=== PATIENT | male | born 1970 | race Caucasian/White ===

== ENCOUNTER 2024-03-29 12:24 | Outpatient (REF) | payer MEDICARE, SELFPAY ==
[2024-03-29 13:28] LABS: MANUAL DIFF FLAG NO
[2024-03-29 13:35] LABS: Basophils Percent Auto 0.4 % (0-2); Eosinophils Absolute Auto 0.1 X10*3/uL (0.0-0.4); Eosinophils Percent Auto 1.8 % (0-4); Hematocrit 37.9 % (42.0-52.0); Hemoglobin 12.1 g/dl (14.0-18.0); Imm Gran Abs Auto 0.02 X10*3/uL (0.00-0.03); Imm Gran Pct Auto 0.3 % (0.0-0.4); Lymphocytes Absolute Auto 2.1 X10*3/uL (1.2-4.9); Lymphocytes Percent Auto 29.4 % (20-40); Mean Corpuscular HGB Conc 31.9 g/dl (31.0-36.0); Mean Corpuscular Hemoglobin 27.6 pg (27.0-33.0); Mean Corpuscular Volume 86.3 fL (80.0-98.0); Mean Platelet Volume 9.4 fL (9.4-12.4); Monocytes Absolute Auto 0.5 X10*3/uL (0.1-1.2); Monocytes Percent Auto 6.5 % (2-11); Neutrophils Absolute Auto 4.4 x10*3/uL (2.0-8.3); Neutrophils Percent Auto 61.6 % (45-73); Platelet Count 290 X10*3/uL (160-400); Red Blood Count 4.39 X10*6/uL (4.60-5.80); Red Cell Distribution Width 14.7 % (11.0-16.0); White Blood Count 7.1 X10*3/uL (4.8-10.8)
[2024-03-29 14:13] LABS: Erythrocyte Sedimentation Rate 14 MM/HR (0-15)
[2024-03-29 14:47] LABS: Rheumatoid Factor < 13.0 IU/mL (<15.0)
[2024-03-29 14:58] LABS: Alanine Aminotransferase 15 U/L (0-40); Albumin Level 4.1 g/dL (3.5-5.0); Alkaline Phosphatase 82 U/L (39-117); Anion Gap 14 (12-20); Aspartate Amino Transferase 30 U/L (5-37); Bilirubin Total 0.4 mg/dL (0.0-1.0); Blood Urea Nitrogen 10 mg/dL (9-16); C Reactive Protein 0.59 mg/dL (< or = 0.50); Calcium 9.5 mg/dL (8.4-10.2); Carbon Dioxide 27 mmol/L (22-29); Chloride 104 mmol/L (96-108); Cholesterol 147 mg/dL (<200); Estimated Glomerular Filt Rate > 60; Glucose Random 65 mg/dL (60-115); HDL Cholesterol 46 mg/dL (>40); LDL Cholesterol Calculated 89 mg/dL (<100); Potassium 4.1 mmol/L (3.3-5.1); Sodium 141 mmol/L (135-145); Total Protein 6.9 g/dL (6.5-8.0); Triglycerides 64 mg/dL (<150)
[2024-03-30 08:16] LABS: HIV AB/AG Nonreactive (Nonreactive); HIV Num 1 0.05 S/CO (0.00-0.99); ~HepC Num1 0.08 S/CO (0.00-0.79); ~Hepatitis C Antibody Nonreactive (Nonreactive)
[2024-03-31 10:49] LABS: RPR Rapid Plasma Reagin NON-REACTIVE (NON-REACTIVE)
[2024-03-31 20:38] LABS: Cyclic Citrullinated Peptide <16 UNITS
[2024-04-01 13:28] LABS: Anti Nuclear Antibody Screen NEGATIVE (NEGATIVE)
== END 2024-03-29 12:25 | disposition home or self-care (01) ==
LOC: HO.HHCL 12:24
PROVIDERS: Visit Provider Nurse Practitioner Primary Care
DX: Z11.4 Encounter for screening for human immunodeficiency virus [HIV] (principal); Z13.6 Encounter for screening for cardiovascular disorders; Z13.220 Encounter for screening for lipoid disorders; M25.50 Pain in unspecified joint; Z20.2 Contact with and (suspected) exposure to infections with a predominantly sexual mode of transmission
CPT/HCPCS: 36415; 80053; 80061; 85025; 85652; 86038; 86140; 86200; 86431; 86592; 86803; 87389

== ENCOUNTER 2024-05-10 15:49 | Outpatient (REF) | payer MEDICARE, SELFPAY | END 2024-05-10 15:50 | disposition home or self-care (01) | LOC: HO.HOSX 15:49 | PROVIDERS: Visit Provider Orthopaedic Surgery | DX: Z13.89 Encounter for screening for other disorder (principal) ==

== ENCOUNTER 2024-06-01 12:58 | Outpatient (REF) | payer MEDICARE, SELFPAY | END 2024-06-01 12:59 | disposition home or self-care (01) | LOC: HO.HOSX 12:58 | PROVIDERS: Visit Provider Orthopaedic Surgery | DX: Z13.89 Encounter for screening for other disorder (principal) ==

== ENCOUNTER 2024-06-23 11:44 | Outpatient (REF) | payer MEDICARE, SELFPAY ==
--- OUTSIDE RECORDS SUMMARY | 2024-06-24 12:45 | XMS_ITS | Clinical Summary ---
Author Organization [employer] [facility] Address [address] [facility] 7 [place] [address] Care Team Providers Care Travel Rn Or Name Role Phone Megan Doe Primary Care Provider [phone] Allergies No known active allergies Medications lidocaine (Lidoderm) 5 % patchIndication s:Low back pain at multiple sites Apply 1 patch topically Once per day. Remove & discard patch within 12 hours or as directed by MD. 30 patch 2 Active Active Problems Problem Noted Date Diagnosed Date Chronic low back pain 03/29/2024 Tobacco dependence syndrome 03/29/2024 Encounters Date Type Department Care Team Description 05/16/2024 Telephone [facility] [address] [place] [phone] Cheryl Jensen MA June recall 04/13/2024 Orders Only [address] [address] Megan Doe ANP 04/05/[address] [address] Megan Doe ANP Prior Authorization (JAMI PADILLA Request: Lidocaine 5% Patch) 03/29/2024 11:15 AM EST Office Visit [address] [address] Megan Doe ANP Recurrent left knee instability (Primary Dx); Chronic pain of left ankle; Encounter for immunization; Polyarthralgia; Routine screening for STI (sexually transmitted infection); Encounter for lipid screening for cardiovascular disease; Low back pain at multiple sites; Screening for colon cancer; History of lumbar fusion; Tobacco dependence syndrome 03/29/2024 Travel 03/28/2024 Telephone [facility] [address] [place] [phone] Mary Ann Underwood MA chart prep from Last 3 Months Immunizations Name Administration Dates Next Due Hep A, Adult 06/17/2021 Hep B, adult 06/17/2021 Influenza, IIV3, injectable 01/26/2015 Influenza, seasonal, injecta ble, preservative free 03/29/2024(Deferred: Patient decision) Tdap 06/28/2021 Social History Tobacco Use Types Packs/Day Years Used Date Smoking Tobacco: Every Day Cigarettes Smokeless Tobacco: Current Tobacco Cessation:Ready to Q uit: Not Asked; Counseling Given: Not Answered Alcohol Answer Date Recorded Frequency of Alcohol Consumption Not on file 03/29/2024 Average Number of Drinks Not on file Frequency of Binge Drinking Not on file 03/18 Score 0 03/29/2024 Sex and Gender Information Value Date Recorded Sex Assigned at Male 03/17/2022 10:35 AM EDT Legal Sex Male 10:35 AM EDT Gender Identity Male 03/17/2022 10:35 AM EDT Sexual Orientation Straight 03/17/2022 10 :35 AM EDT Last Filed Vital Signs Vital Sign Reading Time Taken Comments Blood Pressure 100/61 03/29/2024 11:59 AM EST Pulse 65 03/29/2024 11:59 AM EST Temperature 36.9 ??C (98.5 ??F) 03/29/2024 1 1:59 AM EST Respiratory Rate 16 03/29/2024 11:5 9 AM EST Oxygen Saturation 98% 03/29/2024 11: 59 AM EST Inhaled Oxygen Concentration - - Weight 53.4 kg (117 lb 12.8 oz) 024 11:59 AM EST Height 175.9 cm (5' 9.25 ) 06/28/2021 1 2:02 AM EST Body Mass Index 17.27 06/28/2021 12:02 AM EST Plan of Treatment Health Maintenance Due Date Last Done Comments CT Colonography 1971 Colonoscopy 1971 Colorectal Cancer Screening 1971 Depression Screening 1971 FIT DNA/Cologuard 1971 FIT 1971 FOBT 1971 SDOH Screening 1971 Sigmoidoscopy 1971 Family Planning (PISQ) 12/16/1986 Pneumococcal Vaccine: 50+ Years (1 of 2 - PCV) 12/16/1990 Hepatitis B Vaccines (2 of 3 - 19+ 3-dose series) 07/15/2021 06/17/2021 Hepatitis A Vaccines (2 of 2 - Risk 2-dose series) 12/15/2021 06/17/2021 Zoster Vaccines (1 of 2) 12/16/2021 COVID-19 Vaccine (1 - 2023-2 5 season) 2024 Influenza Vaccine (#1) 2024 01/26/2015 Alcohol/Substance Use Screening 03/29/2025 03/29/2024 Tobacco Screening 03/29/2025 03/29/2024 Lipid Panel 03/29/2029 03/29/2024 DTaP/Tdap/Td Vaccines (2 - T d or Tdap) 06/28/2031 06/28/2021 RSV Patients and Patients Aged 60 years or older (1 - 1-dose 75+ series) 12/16/2046 HIV Screening Completed 03/29/2024, 06/10/2021 Hepatitis C Screening Completed 03/29/2024 , 06/10/2021 HIB Vaccines Aged Out No longer eligi ble based on patient's age to complete this topic HPV Vaccines Aged Out No longer eligi ble based on patient's age to complete this topic IPV Vaccines Aged Out No longer eligi ble based on patient's age to complete this topic Meningococcal Vaccine Aged Out No moon betzaida eligible based on patient's age to complete this topic RSV under 20 months Aged Out No longe r eligible based on patient's age to complete this topic Rotavirus Vaccines Aged Out No longer eligible based on patient's age to complete this topic Procedures Procedure Name Priority Date/Time Associated Diagnosis Comments LIPID PANEL, STANDARD Routine 03/29/2024 12:29 PM EST Polyarthralgia Encounter for lipid screening for cardiovascular disease YAZMIN SCREEN, IFA, W/REFL TITER AND PATTERN Routine 03/29/2024 12:29 PM EST Polyarthralgia CBC WITH AUTO DIFFERENTIAL Routine 03/29/2024 12:29 PM EST Polyarthralgia CYCLIC CITRULLINATED PEPTIDE (CCP) AB (IGG) Routine 03/29/2024 12:29 PM EST Polyarthralgia C-REACTIVE PROTEIN Routine 03/29/2024 12 :29 PM EST Polyarthralgia SED RATE BY MODIFIED WESTERGREN Routine 03/29/2024 12:29 PM EST Polyarthralgia RHEUMATOID FACTOR Routine 03/29/2024 12: 29 PM EST Polyarthralgia HEPATITIS C AB W/REFL TO HCV RNA, QN, PCR Routine 03/29/2024 12:29 PM EST Routine screening for STI (sexually transmitted infection) RPR (MONITOR) W/REFL TITER Routine 03/29/2024 12:29 PM EST Routine screening for STI (sexually transmitted infection) HIV 1/2 ANTIGEN/ANTIBODY, FOURTH GENERATION W/RFL Routine 03/29/2024 12:29 PM EST Routine screening for STI (sexually transmitted infection) COMPREHENSIVE METABOLIC PANEL Routine 03/29/2024 12:29 PM EST Routine screening for STI (sexually transmitted infection) from Last 3 Months Results * (ABNORMAL) CBC auto differential (03/29/2024 12:29 PM EST) White Blood Count 7.1 4.8 - 10.8 X10*3/uL [facility] Red Blood Count 4.39(L) 4.60 - 5.80 X10*6/uL [facility] Hemoglobin 12.1(L) 14.0 - 18.0 g/dl [facility] Hematocrit 37.9(L) 42.0 - 52.0 % [facility] Mean Corpuscular Volume 86.3 80.0 - 98.0 fL [facility] Mean Corpuscular Hemoglobin 27.6 27.0 - 33.0 pg [facility] Mean Corpuscular HGB Conc 31.9 31.0 - 36.0 g/dl [facility] Red Cell Distribution Width 14.7 11.0 - 16.0 % [facility] Platelet Count 290 160 - 400 X10*3/uL [facility] Mean Platelet Volume 9.4 9.4 - 12.4 fL [facility] Neutrophils Percent Auto 61.6 45 - 73 % [facility] Imm Gran Pct Auto 0.3 0.0 - 0.4 % [facility] Lymphocytes Percent Auto 29.4 20 - 40 % [facility] Monocytes Percent Auto 6.5 2 - 11 % [facility] Eosinophils Percent Auto 1.8 0 - 4 % [facility] Basophils Percent Auto 0.4 0 - 2 % [facility] NRBC Pct Auto 0.0 0.0 - 0.2 /100WBC [facility] Neutrophils Absolute Auto 4.4 2.0 - 8.3 x10*3/uL [facility] Imm Gran Abs Auto 0.02 0.00 - 0.03 X10*3/uL [facility] Lymphocytes Absolute Auto 2.1 1.2 - 4.9 X10*3/uL [facility] Monocytes Absolute Auto 0.5 0.1 - 1.2 X10*3/uL [facility] Eosinophils Absolute Auto 0.1 0.0 - 0.4 X10*3/uL [facility] Basophils Absolute Auto 0.0 0.0 - 0.2 X10*3/uL [facility] NRBC Abs Auto 0.000 0.0 - 0.012 X10*3/uL [facility] Blood Venous blood specimen / Unknown 03/29/2024 12:29 PM EST 03/29/2024 1:15 PM EST Megan Doe [facility] LAB BLOOD ORDERABLES Final Resul t [facility] [address] [place] [phone] * Hepatitis C Antibody with Reflex to HCV, RNA, Quantitative, Real-Time PCR (03/29/2024 12:29 PM EST) Hepatitis C Antibody Nonreactive Nonreactive [facility] Comment:Antibodies to HCV no t detected; does not exclude early acuteHCV infection. Blood Venous blood specimen / Unknown 03/29/2024 12:29 PM EST 03/29/2024 1:15 PM EST Megan Doe [facility] LAB BLOOD ORDERABLES Final Resul t Performing Organization Address [facility] Co de Phone Number [facility] [address] [place] [phone] * Cyclic Citrullinated Peptide (CCP) Antibody (IgG) (03/29/2024 12:29 PM EST) Cyclic Citrullinated Peptide <16 UNITS [facility] Comment:Reference RangeNegat jeremy: <20Weak Positive: 20-39Moderate Positive: 40-59Strong Positive: >59THIS TEST WAS PERFORMED AT:[facility] [address] [id number] CARDONA MD Blood Venous blood specimen / Unknown 03/29/2024 12:29 PM EST 03/29/2024 1:15 PM EST Megan Doe [facility] LAB BLOOD ORDERABLES Final Resul t Performing Organization Address [facility] Co de Phone Number [facility] [address] [place] [phone] * RPR (Monitor) with Reflex to??Titer (03/29/2024 12:29 PM EST) RPR (Monitor) w/Refl Titer NON-REACTI VE NON-REACT JEREMY [facility] Comment:THIS TEST WAS PERFOR MED AT:[facility] [address] [id number] CARDONA MD Rapid Plasma Reagin Ab Titer TNP [facility] Blood Venous blood specimen / Unknown 03/29/2024 12:29 PM EST 03/29/2024 1:15 PM EST Megan [facility] LAB BLOOD ORDERABLES Final Resul t Performing Organization Address [facility] Co de Phone Number [facility] [address] [place] [phone] * HIV-1/2 Antigen and Antibodies, Fourth Generation, with Reflexes (03/29/2024 12:29 PM EST) HIV AB/AG Nonreactive Nonreactive [facility] Comment:HIV-1 p24 Ag and/or HIV-1/HIV-2 Ab not detected.A test result that is nonreactive does not exclude thepossibility of exposure to or infection with HIV-1 and/orHIV-2. Nonreactive results in this assay for individualswith prior exposure to HIV-1 and/or HIV-2 may be due toantigen and antibody levels that are below the limit ofdetection of this assay.The [employer] HIV Ag/Ab Combo assay result andsupplemental assay results should be interpreted inconjunction with the patient's clinical presentation,history and other laboratory results. If the results areinconsistent with clinical evidence, additional testing issuggested to confirm the result. Blood Venous blood specimen / Unknown 03/29/2024 12:29 PM EST 03/29/2024 1:15 PM EST Megan Doe [facility] LAB BLOOD ORDERABLES Final Resul t Performing Organization Address City/[facility] Co de Phone Number [facility] [address] [place] [phone] * Sed Rate by Modified Westergren (03/29/2024 12:29 PM EST) Erythrocyte Sedimentation Rate 14 0 - 15 MM/HR [facility] Comment:Patients with polycy themia and many hemoglobin abnormalitiesmay have depressed sed rates whereas patients with anemiamay have elevated sed rates. Blood Venous blood specimen / Unknown 03/29/2024 12:29 PM EST 03/29/2024 1:15 PM EST Megan Doe [facility] LAB BLOOD ORDERABLES Final Resul t Performing Organization Address [facility] Co de Phone Number [facility] [address] [place] [phone] * Rheumatoid Factor (03/29/2024 12:29 PM EST) Rheumatoid Factor <13.0 <15.0 IU/mL [facility] Blood Venous blood specimen / Unknown 03/29/2024 12:29 PM EST 03/29/2024 1:15 PM EST Megan Doe [facility] LAB BLOOD ORDERABLES Final Resul t Performing Organization Address [facility] Co de Phone Number [facility] [address] [place] [phone] * (ABNORMAL) C-reactive Protein (03/29/2024 12:29 PM EST) Pathologist [facility] C Reactive Protein 0.59(H) < or = 0.50 mg/dL [facility] Blood Venous blood specimen / Unknown 03/29/2024 12:29 PM EST 03/29/2024 1:15 PM EST Megan Doe [facility] LAB BLOOD ORDERABLES Final Resul t Performing Organization Address [facility] Number [facility] [address] [place] [phone] * YAZMIN Screen,IFA, with Reflex to Titer and Pattern (03/29/2024 12:29 PM EST) Anti Nuclear Antibody Screen NEGATIVE NEGATIVE [facility] Comment:YAZMIN IFA is a first l ine screen for detecting thepresence of up to approximately 150 autoantibodies invarious autoimmune diseases. A negative YAZMIN IFA resultsuggests an YAZMIN-associated autoimmune disease is notpresent at this time, but is not definitive. If thereis high clinical suspicion for Sjogren's syndrome,testing for anti-SS-A/Ro antibody should be considered.Anti-Chyna-1 antibody should be considered for clinicallysuspected inflammatory myopathies.AC-0: NegativeInternational Consensus on YAZMIN Patterns(https://doi.org/10.1515/tjce-6017-0297)For additional information, please refer tohttp://education.Govtoday/faq/MFP148(This link is being provided for informational/educational purposes only.)THIS TEST WAS PERFORMED AT:[facility] [place] [phone] CARDONA MD YAZMIN Titer TNP [facility] YAZMIN Pattern TNP [facility] YAZMIN TITER 2 (REF LAB) [facility] Pattern 2 [facility]NP [facility] Y[facility]MIN TITER 3 [facility] YAZMIN PATTERN 3 [facility] Blood Venous blood specimen / Unknown 03/29/2024 12:29 PM EST 03/29/2024 1:15 PM EST [facility] LAB BLOOD ORDERABLES Final Resul t [facility] [address] [place] [phone] * Lipid Panel, Standard (03/29/2024 12:29 PM EST) Triglycerides 64 <150 mg/dL [facility] Comment:Desirable Triglyceri de: less than 150 mg/dLBorderline High Triglyceride 150-199 mg/dLHigh Triglyceride: 200-499 mg/dLVery High Triglyceride: greater than or equal to 5OO mg/dL Cholesterol 147 <200 mg/dL [facility] Comment:Desirable Cholestero l: less than 200 mg/dLBorderline High Cholesterol: 200-239 mg/dLHigh Cholesterol: greater than 239 mg/dL LDL Cholesterol Calculated 89 <100 mg/dL [facility] Comment:Desirable LDL: less than 100 mg/dLNear Optimal/Above Optimal LDL: 110- 129 mg/dLBorderline High LDL: 130-159 mg/dLHigh LDL: 160-189 mg/dLVery High LDL: greater than or equal to 190 mg/dL HDL Cholesterol 46 >40 mg/dL [facility] Comment:Desirable HDL: great er than 40 mg/dL Note: This HDL assay may give artificially low results in patients with liver disease. Blood Venous blood specimen / Unknown 03/29/2024 12:29 PM EST 03/29/2024 1:15 PM EST Megan Doe [facility] LAB BLOOD ORDERABLES Final Resul t [facility] [address] [place] [phone] * Comprehensive Metabolic Panel (03/29/2024 12:29 PM EST) Sodium 141 135 - 145 mmol/L [facility] Potassium 4.1 3.3 - 5.1 mmol/L [facility] Chloride 104 96 - 108 mmol/L [facility] Carbon Dioxide 27 22 - 29 mmol/L [facility] Anion Gap 14 12 - 20 [facility] Urea Nitrogen (BUN) 10 9 - 16 mg/dL [facility] Creatinine, Serum 0.78 0.5 - 1.4 mg/dL [facility] Estimated Glomerular Filt Rate >60 [facility] Comment:Chronic Kidney Disea se: Estimated GFR < 60 mL/min/1.56l1Nsgevc Kidney Disease: Estimated GFR < 15 mL/min/1.73m2 Glucose 65 60 - 115 mg/dL [facility] Calcium 9.5 8.4 - 10.2 mg/dL [facility] Bilirubin, Total 0.4 0.0 - 1.0 mg/dL [facility] Aspartate Amino Transferase 30 5 - 37 U/L [facility] Alanine Aminotransferase 15 0 - 40 U/L [facility] Total Protein 6.9 6.5 - 8.0 g/dL [facility] Albumin Level 4.1 3.5 - 5.0 g/dL [facility] Alkaline Phosphatase 82 39 - 117 U/L [facility] Blood Venous blood specimen / Unknown 03/29/2024 12:29 PM EST 03/29/2024 1:15 PM EST us Megan [facility] LAB BLOOD ORDERABLES Final Resul t [facility] [address] [place] [phone] from Last 3 Months Insurance MEDICARE Care Teams Travel Rn Or Relationship Specialty Start Date End Date Megan Doe ANP [address] [place] [phone] PCP - General Family Medicine 06/28/21
--- OUTSIDE RECORDS SUMMARY | 2024-06-24 12:45 | XMS_ITS | Encounter Summary ---
Author Organization [employer] [facility] Address [address] [facility] [place] [address] Care Team Providers Care Ged Preparation Teacher Name Role Phone Megan Doe Primary Care Provider [phone] Encounter Details Date Type Department Care Team (Late st Contact Info) Description 04/13/2024 Orders Only [facility] [address] [place], [place] [phone] Megan Doe ANP [address] [place] [address] Social History Tobacco Use Types Packs/Day Years Used Date Smoking Tobacco: Every Day Cigarettes Smokeless Tobacco: Current Alcohol Answer Date Recorded Frequency of Alcohol Consumption Not on file 03/29/2024 Average Number of Drinks Not on file 024 Frequency of Binge Drinking Not on file 03/18 Score 0 03/29/2024 Sex and Gender Information Value Date Recorded Sex Assigned at Male 03/17/2022 10:35 AM EDT Legal Sex Male 10:35 AM EDT Gender Identity Male 03/17/2022 10:35 AM EDT Sexual Orientation Straight 03/17/2022 10 :35 AM EDT documented as of this encounter Plan of Treatment Not on file documented as of this encounter Visit Diagnoses Not on filedocumented in this encounter Care Teams Ged Preparation Teacher Relationship Specialty Start Date End Date Megan Doe ANP [address] [place] [address] PCP - General Family Medicine 06/28/21 documented as of this encounter
== END 2024-06-23 11:45 | disposition home or self-care (01) ==
LOC: HO.HOSX 11:44
PROVIDERS: Visit Provider Orthopaedic Surgery
DX: Z13.89 Encounter for screening for other disorder (principal)